=== PATIENT | male | born 1965 | race Caucasian/White ===

== ENCOUNTER 2016-05-07 23:00 | Emergency (ER) | payer MEDICARE, OTHER ==
[~2016-05-07 23:00] MED LIST: ACET500CAP PO; ANTIBIOTIC PO; APRES50 PO; ASA5GR PO; ASAB PO; ASABAYER PO; ASAEC PO; ASPIRIN PO; ATIVAN PO; ATV.5 PO; BEN25 PO; BISR PR; CAT2 PO; CATAPRES2 TOP; CATAPRES3 TOP; CLONIDINE PO; COREG12 PO; COREG6 PO; COZ25 PO; COZ50 PO; CYMBALTA30 PO; DUONEB INH; ECONOPRED PL1 % OPH; FISH-EPA1000 MG PO; FOLIC ACID PO; FOLIC PO; FOSRENOL1000 MG PO; HABIT21 TOP; HYDRALAZINE PO; HYDRALAZINE100 MG PO; HYDROCODONE PO; HYDROCORT12 TOP; INSNOVR SC; L80 PO; LACT30UDL PO; LANTUS; LANTUS SC; LANTUSCART SC; LIPITOR10 PO; LIQUID TEARS OPH; LISINOPRIL PO; LISINOPRIL40 MG PO; LORTAB 5 PO; MAGNEBIND PO; MAGOX4 PO; MIRALAXPKT PO; MONODOX100 MG PO; NATURE'S OP; NIACIN PO; NORCO1 TA2 PO; NORCO1 TAB PO; NORVASC PO; NOVOLIN; NOVOLOG SC; NOVOPEN SC; OMEPRAZOLE PO; OTC STOOL SOFTENER PO; PHOSLO PO; PLAVIX PO; PREDFORTE OPH; PRILO PO; PRIN20 PO; PROMEGA PO; PROSCAR5 PO; PROTONIX PO; RANITIDINE300 MG PO; REG PO; REG5 PO; ROXICODONE15 MG PO; SEVE800T PO; SPIRIVA INH; TEARS NATURA OPH; TRAN200 PO; TRANDAT100 PO; TRANDAT300 PO; TRILIPIX135 MG PO; VELPHORO PO; VENTOLIN HFA INH; VISINE TEARS15 ML OPH; ZANTAC PO; ZANTAC300 MG PO; ZESTRIL20 MG PO; ZESTRIL40 MG PO; ZOFRAN4 PO; [UNRECOGNIZED DRUG - OTHER] OP; [UNRECOGNIZED DRUG - OTHER] PO; [UNRECOGNIZED DRUG - REMARK] PO; fish oil PO
== END 2016-05-08 00:42 | disposition home or self-care (01) ==
LOC: ER 23:00
DX: T81.89XA Other complications of procedures, not elsewhere classified, initial encounter (principal); Z89.432 Acquired absence of left foot; F17.200 Nicotine dependence, unspecified, uncomplicated; J44.9 Chronic obstructive pulmonary disease, unspecified; I10 Essential (primary) hypertension; E10.9 Type 1 diabetes mellitus without complications; Z99.2 Dependence on renal dialysis; Z88.2 Allergy status to sulfonamides; Z88.5 Allergy status to narcotic agent; Z79.82 Long term (current) use of aspirin; Z79.4 Long term (current) use of insulin; Z79.899 Other long term (current) drug therapy
CPT/HCPCS: 80048; 83735; 84484; 85025; 85610; 85730; 93005; 99284